=== PATIENT | female | born 1965 | race Caucasian/White ===

== ENCOUNTER 2017-07-10 07:49 | Day surgery (SDC) | payer BC ==
[2017-07-08 12:10] LABS: BASOPHILS % (AUTO) 0.4 % (0-1); EOSINOPHILS # (AUTO) 0.2 X10'3 (0-0.9); EOSINOPHILS % (AUTO) 2.2 % (0-6); LYMPHOCYTES # (AUTO) 3.1 X10'3 (1.1-4.8); LYMPHOCYTES % (AUTO) 31.7 % (21-51); MEAN CORPUSCULAR HGB CONC 34.7 % (33.0-36.5); MEAN CORPUSCULAR VOLUME 92.1 FL (78-98); MEAN PLATELET VOLUME 9.8 FL (7.4-10.4); MONOCYTES # (AUTO) 0.5 X10'3 (0-0.9); MONOCYTES % (AUTO) 5.5 % (2-12); NEUTROPHILS # (AUTO) 5.9 X10'3 (1.8-7.7); NEUTROPHILS % (AUTO) 60.2 % (42-75); PRE OP HEMOGLOBIN 16.7 g/dL (12.0-16.0); PRE OP PLATELET COUNT 176 X10'3 (140-440); RED BLOOD COUNT 5.21 X10'6 (4.20-5.60); RED CELL DISTRIBUTION WIDTH 13.7 % (11.5-14.5)
[2017-07-08 12:12] LABS: CLARITY,URINE Clear (Clear); COLOR,URINE Yellow (Yellow); GLUCOSE, URINE Negative (Neg); KETONES,URINE Negative (Neg); LEUKOCYTE ESTERASE ,URINE Negative (Neg); NITRITES, URINE Negative (Neg); OCCULT BLOOD,URINE Negative (Neg); PROTEIN,URINE Negative (Neg); UROBILINOGEN,URINE 0.2 E.U/dL (0.2-1.0)
[2017-07-08 12:24] LABS: ALBUMIN 4.2 G/DL (3.4-5.0); ALBUMIN/GLOBULIN RATIO 1.3 (1.1-1.5); ALKALINE PHOSPHATASE 54 IU/L (46-116); BLOOD UREA NITROGEN 15 MG/DL (7-18); BUN/CREATININE RATIO 15.6 (6.6-38.0); CALCIUM 9.7 MG/DL (8.5-10.1); CHLORIDE 106 MMOL/L (99-107); CREATININE 0.96 MG/DL (0.40-0.90); PRE OP ALT 27 U/L (30-65); PRE OP ANION GAP 9 (8-16); PRE OP AST 15 U/L (10-37); PRE OP BILIRUB, TOTAL 0.6 MG/DL (0.0-1.0); PRE OP GLUCOSE 98 MG/DL (70-104); PRE OP POTASSIUM 3.9 MMOL/L (3.4-5.1); PRE OP SODIUM 145 MMOL/L (135-145); TOTAL CARBON DIOXIDE 30.1 MMOL/L (24-32); TOTAL PROTEIN 7.4 G/DL (6.4-8.2); eGFR 61 ML/MIN
[2017-07-08 12:28] LABS: UA COLLECTION TYPE CLN CATCH MIDSTREAM
[~2017-07-10] VITALS: Ht 162.6 cm; Wt 62.0 kg
[2017-07-10] VITALS (13 sets, daily range): BP systolic 100–132; BP diastolic 68–86
[~2017-07-10 07:49] MED LIST: ALBU18HF2 IH; CEFOXITIN 1000 MG in NS IV.SOLN 100 ML IV ONE; FLUT1AER; FLUT1DIS4 INH; MULT-38 PO; VAL5T PO; famotidine 20mg tablet PO ONE; ringers solution, lacted 1,000 ML IV SCH
[2017-07-10] MEDS ORDERED: LIDOcaine 1% (10mg/ml) 2ml vial ONE (08:31)
[2017-07-10] MEDS ORDERED: diazepam 5mg tablet PO ONE (08:50)
[2017-07-10] MEDS ORDERED: epiNEPHrine 1 mg/ml inj ONE (10:08)
[2017-07-10] MEDS ORDERED: vasoPRESSIN 20 units/ml inj. ONE (10:20)
[2017-07-10] MEDS ORDERED: midazolam 2 mg/2 ml injection ONE (10:29)
[2017-07-10] MEDS ORDERED: fentaNYL/PF 50MCG/1 ML 2ML syringe ONE (10:30)
[2017-07-10] MEDS ORDERED: ringers solution, lacted 1,000 ML IV ONE (10:57)
[2017-07-10] MEDS ORDERED: morphine 2 MG/ML inj. syringe IV PRN ×2 (11:00)
[2017-07-10] MEDS ORDERED: labetalol 20mg/4ml (5mg/ml) syringe IV PRN (11:00)
[2017-07-10] MEDS ORDERED: hydrALAZINE 20mg/ml inj. IV PRN (11:00)
[2017-07-10] MEDS ORDERED: meperidine/PF 50mg/ml syringe IV PRN ×2 (11:00)
[2017-07-10] MEDS ORDERED: ondansetron/PF 4mg/2ml inj IV PRN (11:00)
[2017-07-10] MEDS ORDERED: meperidine/PF 25mg/ml syringe IV ONE (11:00)
[2017-07-10] MEDS ORDERED: ondansetron/PF 4mg/2ml inj ONE (11:02)
[2017-07-10] MEDS ORDERED: dexamethasone sod phosphate 4mg/ml inj. ONE (11:02)
[2017-07-10] MEDS ORDERED: LIDOcaine 2% (20mg/ml) 5ml vial ONE (11:02)
[2017-07-10] MEDS ORDERED: rocuronium 10mg/ml inj IV ONE (11:02)
[2017-07-10] MEDS ORDERED: propofol inj 20 ML IV ONE (11:02)
[2017-07-10] MEDS: BUPIVAcaine/PF 2.5 mg/ml (0.25%) 30ml vial ONE ×2 (11:15→11:16)
[2017-07-10] MEDS ORDERED: neostigmine methylsulfate 1 MG/ML 10ml vial ONE (11:46)
[2017-07-10] MEDS ORDERED: glycopyrrolate 0.2mg/ml inj ONE (11:46)
[2017-07-10] MEDS ORDERED: meperidine/PF 50mg/ml syringe ONE (12:13)
[2017-07-10] MEDS ORDERED: HYDROcodone/acetaminophen 5mg/325mg tablet PO ONE (13:30)
[2017-07-10] MEDS ORDERED: HYDROcodone/acetaminophen 10/325mg tab PO ONE (13:35)
[2017-07-10] MEDS ORDERED: ketorolac trometh. 30mg/ml inj. IV ONE (13:35)
== END 2017-07-10 14:00 | disposition home or self-care (01) ==
LOC: PAS 07:49
PROVIDERS: ATTEND Obstetrics & Gynecology Obstetrics
DX: N70.11 Chronic salpingitis (principal); K66.0 Peritoneal adhesions (postprocedural) (postinfection); F17.210 Nicotine dependence, cigarettes, uncomplicated; F41.9 Anxiety disorder, unspecified; Z90.721 Acquired absence of ovaries, unilateral; Z90.49 Acquired absence of other specified parts of digestive tract; Z98.890 Other specified postprocedural states; Z79.1 Long term (current) use of non-steroidal anti-inflammatories (NSAID); Z90.711 Acquired absence of uterus with remaining cervical stump; Z79.899 Other long term (current) drug therapy
CPT/HCPCS: 36415; 58661; 71046; 80053; 81003; 85025; 86885; 86900; 86901; 93005; A6255; J0171; J0694; J1100; J1885; J2001; J2175; J2250; J2405; J2704; J2710; J3010; J3490; J7030; J7120; A7000